=== PATIENT | female | born 1995 | race Caucasian/White ===

== ENCOUNTER 2024-07-17 02:49 | Inpatient (IN) | payer OTHER ==
[2024-07-17 05:57] LABS: Hemoglobin 10.6 g/dL (12.0-15.5); Mean Corpuscular HGB CONC 34.2 g/dL (32.0-36.0); Mean Corpuscular Hemoglobin 30.1 pg (27.0-33.0); Mean Corpuscular Volume 88.1 fL (81.6-98.3); Mean Platelet Volume 10.1 fL (7.4-10.4); Platelet Count 218 10x3/uL (150-450); RBC Distribution Width 13.3 % (11.5-14.5); Red Blood Cell (RBC) Count 3.52 10x6/uL (3.90-5.03); White Blood Cell (WBC) Count 10.8 10x3/uL (3.5-10.5)
[2024-07-17 06:20] VITALS: BMI 31.1
[2024-07-17 06:27] LABS: Syphilis Antibody Nonreactive (Nonreactive); Syphilis Antibody Index 0.14 S/CO (<1.00 Non-Reactive)
[2024-07-17 06:29] LABS: HBsAg Index 0.18 S/CO (0-0.99); HIV (1/2) Antibody/Antigen Non-Reactive (NonReactive); Hep B Surf Ag - L&D Non-Reactive S/CO (NonReactive)
[2024-07-17] MEDS ORDERED: Ondansetron PF 4 MG/2 ML Vial IVP PRN ×3 (06:30→23:27)
[2024-07-17] MEDS ORDERED: Carboprost 250 MCG/ML AMP IM PRN (06:30)
[2024-07-17] MEDS ORDERED: Promethazine HCl 25 MG/ML VIAL IM PRN ×3 (06:30→23:27)
[2024-07-17] MEDS ORDERED: Lactated Ringer's 1,000 ML IV SCH (06:30)
[2024-07-17] MEDS ORDERED: hydrALAZINE 20 MG/ML VIAL SLOW IVP PRN ×2 (06:30→23:27)
[2024-07-17] MEDS ORDERED: Misoprostol 200 MCG TAB RC PRN (06:30)
[2024-07-17] MEDS ORDERED: Methylergonovine 0.2 MG/ML VIAL IM PRN (06:30)
[2024-07-17] MEDS ORDERED: Lidocaine 1% (PF) 30 ML VIAL SC PRN (06:30)
[2024-07-17] MEDS ORDERED: Oxytocin 30 units/NS 500 ML 500 ML IVPB SCH (06:30)
[2024-07-17] MEDS ORDERED: Acetaminophen 500 MG TAB PO PRN (06:30)
[2024-07-17] MEDS: Misoprostol 100 MCG TAB PO SCH (06:36)
[2024-07-17] MEDS: fentaNYL/Ropivacaine Epidural 100 ML ONE (11:55)
[2024-07-17] MEDS ORDERED: Moisturizing Cream (Eucerin) 113 GM JAR TOP PRN (12:08)
[2024-07-17] MEDS ORDERED: ePHEDrine Sulfate 50 MG/10 ML VIAL SLOW IVP PRN (12:08)
[2024-07-17] MEDS ORDERED: Naloxone HCl 0.4 mg/ml Vial IVP PRN ×2 (12:08)
[2024-07-17] MEDS ORDERED: Lactated Ringer's 500 ML IV PRN (12:08)
[2024-07-17] MEDS ORDERED: diphenhydrAMINE 50 MG/ML VIAL IVP PRN (12:08)
[2024-07-17] MEDS ORDERED: Acetaminophen 325 MG TAB PO PRN (12:08)
[2024-07-17] MEDS ORDERED: Communication Order-Pharmacy FS SCH (12:15)
[2024-07-17] MEDS: fentaNYL 2 mcg/Ropivacaine 0.2% Epidural 100 ML CADD EPIDURAL SCH (19:55)
[2024-07-17] MEDS ORDERED: Preparation H Ointment 28 GM TUBE PR PRN (23:27)
[2024-07-17] MEDS ORDERED: diphenhydrAMINE 25 MG CAP PO PRN (23:27)
[2024-07-17] MEDS ORDERED: Lanolin Ointment 7 GM TUBE TOP PRN (23:27)
[2024-07-17] MEDS ORDERED: HYDROcodone/Acetaminophen 5/325 mg Tablet PO PRN ×2 (23:27)
[2024-07-17] MEDS ORDERED: Bisacodyl 10 MG SUPP PR PRN (23:27)
[2024-07-17] MEDS ORDERED: Boostrix 0.5 ML (Tdap) VIAL (>/=7 yrs of age) IM ONE (23:27)
[2024-07-17] MEDS ORDERED: Milk Of Magnesia 30 ML UDCUP PO PRN (23:27)
[2024-07-17] MEDS ORDERED: Benzocaine-Menthol 82.5 ML CAN TOP PRN (23:27)
[2024-07-17] MEDS: Ibuprofen 800 MG TAB PO SCH (23:47)
[2024-07-18] MEDS: Docusate 100 MG CAP PO SCH (08:33)
[2024-07-18] MEDS: Prenatal Vitamin 1 TAB PO SCH (08:33)
[2024-07-18] MEDS: Ferrous Sulfate 325 MG TAB PO SCH (10:59)
[2024-07-19 08:18] VITALS: BP 132/78; TEMP 97.8
== END 2024-07-19 17:15 | disposition home or self-care (01) | DRG 807 ==
LOC: CSHLD/OP 02:49 → CSHLD 04:47 → CSHPP 07-18 00:30
PROVIDERS: ADMIT Student in an Organized Health Care Education/Training Program; ATTEND Student in an Organized Health Care Education/Training Program
PROC: 10E0XZZ Delivery of Products of Conception, External Approach (ICD-10-PCS; principal; 2024-07-17)
PROC: 0HQ9XZZ Repair Perineum Skin, External Approach (ICD-10-PCS; 2024-07-17)
DX: O13.4 Gestational [pregnancy-induced] hypertension without significant proteinuria, complicating childbirth (principal); Z37.0 Single live birth; Z3A.39 39 weeks gestation of pregnancy; O70.0 First degree perineal laceration during delivery
CPT/HCPCS: 36415; 51702; 85461; 86780; 86850; 86870; 86900; 86901; 86922; 87340; 87389; 90384; 96372; 99285